=== PATIENT | female | born 1950 | race Caucasian/White ===

== ENCOUNTER 2017-03-23 13:16 | Emergency (ER) | payer BC ==
[2017-03-23] MEDS ORDERED: Morphine INJ* 2 MG/ML 1 ML CARPUJECT IV ONE (13:24)
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
[2017-03-23] MEDS ORDERED: NS 0.9% 1000 ML* 1,000 ML IV ONE (14:55)
--- NOTE | 2017-03-23 14:59 | RAD ---
INDICATION: Right-sided chest pain after falling from a horse. COMPARISON: None. TECHNIQUE: Single AP portable view of the chest was obtained. FINDINGS: Image quality is compromised due to the relative inferiority of a portable chest x-ray. The heart and mediastinum exhibit normal size and contour. There is blunting of the left costophrenic angle with density slightly obscuring the lateral aspect of the left hemidiaphragm. The lungs are otherwise grossly clear. There is no large pneumothorax visible. Involving the posterior lateral right fifth, sixth and seventh ribs there are minimally displaced fractures. The sixth rib fracture is displaced approximately one half the width of the rib on the AP only view. IMPRESSION: 1. Minimally displaced fractures involving the posterior lateral right 5th, 6th and 7th ribs. 2. Small degree of left costophrenic angle blunting and slight obscuration of the left hemidiaphragm could be seen with pleural effusion or focal atelectasis. Rib fractures reported to CHUY Bower over the telephone at 1455 hours on March 23, 2017.
[2017-03-23] MEDS ORDERED: Morphine INJ* 4 MG/ML 1 ML CARPUJECT IV ONE (15:36)
[2017-03-23] MEDS ORDERED: Morphine INJ* 4 MG/ML 1 ML CARPUJECT ONE (15:37)
--- NOTE | 2017-03-23 15:47 | UC ---
Chucho Patel Thomas, scribed for Rhonda Rivero MD on 03/23/17 at 1449 . Progress - Progress Note Progress Note: The patient is a a 66 y/o F BIB EMS after she flew off her horse. She was wearing a helmet. The patient walked to the ambulance. In the ED, she complains of right lateral chest pain and right hip pain. The patient denies anterior chest pain and shortness of breath. Pt meets trauma criteria, and when first evaluated by Hetal VERA she ordered plain CXR which shows three adjacent rib fractures ribs 5,6,7 so I discussed with transfer center regarding care prior to transfer. I spoke with Dr. Lazo at [facility], who advised me get a plain film pelvis prior to transfer with her complaint of right hip pain. A [place] collar was also applied. The patient will be transferred to [facility] for higher level of care. PHYSICAL EXAM: Appearance: Well-appearing, pain distress, Well-nourished. Speaks full sentences. Skin: Warm, color reflects adequate perfusion. There is no ecchymosis to the chest or hip. Superficial abrasions to chin and cheeks. Head: Normal Head/Face. No hemotympanum. Eyes: Conjunctiva clear ENT: Normal Neck: Supple. No spinal tenderness. Trachea midline. There is a [place] collar in place. Respiratory: Lungs clear, Normal breath sounds, no respiratory distress Cardiovascular: RRR, No murmur, pulses normal, brisk capillary refill Abdomen: soft, nontender, no masses, no bruits. Bowel sounds: present Musculoskeletal: There is no deformity of the legs. Strength Intact/ ROM intact. Pelvis nontender. Neurological: Alert, muscle tone normal, facial symmetry, speech normal, sensory /motor intact. Moves all extremities well. Psychological: Normal CXR shows 1. Minimally displaced fractures involving the posterior lateral right 5th, 6th and 7th ribs. 2. Small degree of left costophrenic angle blunting and slight obscuration of the left hemidiaphragm could be seen with pleural effusion or focal atelectasis. ED Physician has read this report and agrees. Pelvis xray read by ED MD: no fracture noted. Assessment: Multiple Trauma after thrown from a horse, multiple right rib fractures, right hip pain. Plan: Transfer to [facility], [facility]. Pt and boyfriend, Tony Lopezyasmin, choose [facility], understand need for transfer and agree to transfer. [place] Collar to remain in place for transport. IV NS wide x 2 sites. Morphine 4mg q 30mins prn pain Critical care time: 30 mins Re-Evaluation - Re-Evaluation First Eval Re-Evaluation Time: 03:00 Change: Unchanged Comment: The patient was re-evaluated. Second Eval Re-Evaluation Time: 15:22 Change: Unchanged Comment: [place] collar in in place. The patient is trying to take it off but was advised to keep it in place. Third Eval Re-Evaluation Time: 15:43 Change: Unchanged Comment: The patient was re-evaluated. The documentation as recorded by the Chucho mcrae Thomas accurately reflects the service I personally performed and the decisions made by me, Rhonda Rivero MD.
[2017-03-23 15:55] VITALS: BP 116/56
--- NOTE | 2017-03-23 15:56 | RAD ---
INDICATION: Right hip pain after being thrown from a horse TECHNIQUE: Multiple obliquity AP views of the pelvis were obtained.. FINDINGS: Degenerative changes of the right hip include joint space narrowing and marginal osteophyte formation. The lesser extent similar degenerative changes noted at the left hip. At the left iliac bone there is a focal 1.5 cm bony density. The bones are intact and appropriately aligned. The iliopectineal and ilioischial lines are intact. IMPRESSION: 1. No radiographically apparent fracture or dislocation involving the pelvis. 2. 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
== END 2017-03-23 15:58 | disposition short-term general hospital (02) ==
LOC: ED 13:16
DX: S22.31XA Fracture of one rib, right side, initial encounter for closed fracture (principal); R06.02 Shortness of breath; R07.89 Other chest pain; V80.010A Animal-rider injured by fall from or being thrown from horse in noncollision accident, initial encounter; Y93.9 Activity, unspecified; Y92.9 Unspecified place or not applicable
CPT/HCPCS: 71010; 72190; 93005; 99284; J2270